=== PATIENT | male | born 1995 | race Caucasian/White ===

== ENCOUNTER 2018-04-01 17:45 | Inpatient (IN) | payer OTHER ==
[2018-04-01 19:32] VITALS: BMI 25.0
[2018-04-01] MEDS ORDERED: MELATONIN 5 MG TABLETS PO PRN (22:00)
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
[2018-04-01] MEDS ORDERED: guaiFENesin/D-METHORPHAN HB 10 ML UNIT-DOSE CUPS PO PRN (23:03)
[2018-04-01] MEDS ORDERED: diazePAM 5 MG TABLET PO PRN (23:03)
[2018-04-01] MEDS ORDERED: P-EPHED 60MG/TRIPROLIDI 2.5MG TABLET PO PRN (23:03)
[2018-04-01] MEDS ORDERED: diazePAM 5 MG TABLET PO ONE (23:03)
[2018-04-01] MEDS ORDERED: MENTHOL/PHENOL 1 EACH UD MM PRN (23:03)
[2018-04-01] MEDS ORDERED: ACETAMINOPHEN 325 MG TABLET (FP) PO PRN (23:03)
[2018-04-01] MEDS ORDERED: IBUPROFEN 400 MG TABLET (FP) PO PRN (23:03)
[2018-04-01] MEDS ORDERED: MAGNESIUM CITRATE 300 ML BOTTLE PO PRN (23:03)
[2018-04-01] MEDS ORDERED: MAGNESIUM HYDROX 2400MG/30ML ORAL SUSPENSION 30 ML CUP PO PRN (23:03)
[2018-04-01] MEDS ORDERED: MAG HYDROX/AL HYDROX/SIMETH 30 ML UNIT-DOSE CUP PO PRN (23:03)
[2018-04-01] MEDS ORDERED: NICOTINE POLACRILEX 2 MG GUM BC PRN (23:03)
[2018-04-01] MEDS ORDERED: LOPERAMIDE HCL 2 MG CAPSULE PO PRN (23:03)
[2018-04-02] MEDS: diazePAM 5 MG TABLET PO SCH ×2 (00:26→05:15)
[2018-04-02 07:31] LABS: URINE APPEARANCE SLCLOUDY; URINE BILIRUBIN NEGATIVE (<2.0 mg/dL); URINE COLOR DKYELLOW; URINE GLUCOSE (UA) NEGATIVE (NEGATIVE); URINE KETONE TRACE (NEGATIVE); URINE LEUK ESTERASE TRACE (NEGATIVE); URINE NITRITE NEGATIVE (NEGATIVE); URINE PROTEIN NEGATIVE (NEGATIVE)
[2018-04-02 07:54] LABS: EPI CELLS RARE /HPF (FEW); GRANULAR CASTS 8 /lpf; URINE BACTERIA RARE /hpf (NONE SEEN); URINE MUCUS MODERATE
[2018-04-02] MEDS: PRENATAL VITAMINS W/ FOLIC ACID TABLET (FP) PO SCH (10:11)
[2018-04-02] MEDS: NICOTINE 14 MG/24 HOURS TOPICAL PATCH TD SCH (10:11)
[2018-04-02] MEDS ORDERED: hydrOXYzine PAMOATE 50 MG CAPSULE (FP) PO PRN (10:22)
[2018-04-02 10:26] LABS: HEMATOCRIT 43.6 % (35.4-49); HEMOGLOBIN 15.1 GM/dL (11.7-16.9); MCH 33.1 pg (25.7-33.7); MCHC 34.6 g/dl (32.0-35.9); MEAN CELL VOLUME 95.5 fl (80-96); MEAN PLT VOLUME 9.4 fl (7.5-11.1); PLATELET COUNT 231 K/MM3 (134-434); RBC 4.57 M/mm3 (4.00-5.60); RDW 13.1 % (11.9-15.9); WHITE BLOOD COUNT 6.5 K/mm3 (4.0-10.0)
--- NOTE | 2018-04-02 10:36 | PN ---
[facility] Progress Note Note: PT REPORTS HE WAS DISCHARGED FROM [facility] ON 03/31/18 AND APPARENTLY USED PERCOCETS AND XANAX RIGHT AFTER HE GOT OUT OF [facility]. 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 PT STATES 'I'M NOT WITHDRAWING. I DID NOT USE MUCH". PT IS WILLING TO GO TO REHAB TODAY. PT IS ALERT O X 3. OOB AMBULATING WITH STEADY GAIT.NAD. Vital Signs 04/02/18 04/02/18 04/02/18 03:30 04:15 05:48 Temperature 97.4 F L Pulse Rate 55 L Respiratory 20 18 18 Rate Blood Pressure 98/62 04/02/18 09:09 Temperature 96.9 F L Pulse Rate 84 Respiratory 20 Rate Blood Pressure 110/75 Laboratory Tests 04/01/18 04/02/18 19:00 07:30 WBC 6.5 RBC 4.57 Hgb 15.1 Hct 43.6 MCV 95.5 MCH 33.1 MCHC 34.6 RDW 13.1 Plt Count 231 MPV 9.4 Urine Color Dkyellow Urine Appearance Slcloudy Urine pH 5.0 Ur Specific [place] 1.026 Urine Protein Negative Urine Glucose (UA) Negative Urine Ketones Trace H Urine Blood Negative Urine Nitrite Negative Urine Bilirubin Negative Urine Urobilinogen 2.0 Ur Leukocyte Esterase Trace Urine WBC (Auto) 10 Urine RBC (Auto) 1 Ur Epithelial Cells Rare Urine Bacteria Rare Granular Casts 8 Urine Mucus Moderate PLAN/RECOMMENDATION: D/C DETOX PROTOCOL PT TO GO INTO REHAB CASE DISCUSSED WITH COUNSELOR ASHLIE CROWDER
[2018-04-02 11:59] LABS: CHLORIDE 102 mmol/L (98-107); POTASSIUM 3.6 mmol/L (3.5-5.1); SODIUM 139 mmol/L (136-145)
[2018-04-02 12:24] LABS: ALBUMIN 3.8 g/dl (3.4-5.0); ALK PHOS 34 U/L (45-117); ANION GAP 9 (8-16); BILIRUBIN,TOTAL 1.7 mg/dL (0.2-1.0); BLOOD UREA NITROGEN 16 mg/dL (7-18); CALCIUM 9.1 mg/dL (8.5-10.1); CO2 28 mmol/L (21-32); CREATININE 1.2 mg/dL (0.7-1.3); GLUCOSE,RANDOM 87 mg/dL (74-106); SGOT/AST 15 U/L (15-37); SGPT/ALT 22 U/L (12-78); TOT PROT 6.5 g/dl (6.4-8.2)
--- NOTE | 2018-04-02 16:48 | CONSULT ---
[facility] Psychiatric Consult - Data Date of interview: 04/02/18 Admission source: [facility] Identifying data: First admission to [facility] for this 23 y/o male seeking detox treatment on for cannabis,xanax and opiate dependence.Patient is single,a father of three,domiciled and unemployed.Mr Beltrán declares that he just got released from nursing home (3 days ago) after serving a seven year sentence.Patient admits to using percocet + xanax immediately after his exit from incarceration. Substance Abuse History: Confirmed by patient in this interview.Smoking history : Current every day smoker. Have you smoked in the past 12 months: Yes. Aproximately how many cigarettes per day: 20. Hx Chewing Tobacco Use: Yes. Initiated information on smoking cessation: No. 'Breaking Loose' booklet given : 04/01/18. - Substance & Tx. History. Hx Alcohol Use: No. Hx Substance Use: Yes. Substance Use Type: Cocaine, Marijuana. - Substances Abused. Alprazolam (Xanax). Route: Oral. Frequency: Daily. Amount used: 5-6 2MG. Age of first use: 21. Date of Last Use: 03/31/18. PERCOCET. Route: Oral. Frequency: Daily. Amount used: 10 /10MG. Age of first use: 11. Date of Last Use: 03/31/18 Medical History: Patient endorses good general health. Psychiatric History: Patient denies. Physical/Sexual Abuse/Trauma History: Heavy stressor : released three days ago after seven years in nursing home. Additional Comment: Urine Drug Screen Results: THC-Marijuana, BZO- Benzodiazepines, MTD-Methadone.Noted. Mental Status Exam - Mental Status Exam Alert and Oriented to: Time, Place, Person Cognitive Function: Good Patient Appearance: Well Groomed (covered with tattoos : neck,face,chest,arms + forearms ; appears much older than his stated age) Mood: Withdrawn, Anxious Affect: Mood Congruent Patient Behavior: Fatigued, Appropriate, Cooperative Speech Pattern: Clear Voice Loudness: Normal Thought Process: Goal Oriented Thought Disorder: Not Present Hallucinations: Denies Suicidal Ideation: Denies Insight/Judgement: Poor Sleep: Well Appetite: Good Muscle strength/Tone: Normal Gait/Station: Normal Psychiatric Findings - Problem List ([place] 1, 2,3) (1) Opioid dependence with withdrawal Status: Acute (2) Sedative, hypnotic or anxiolytic dependence with withdrawal, uncomplicated Status: Acute (3) Marihuana abuse Status: Acute (4) Nicotine dependence Status: Acute Qualifiers: Nicotine product type: cigarettes Substance use status: in withdrawal Qualified Code(s): F17.213 - Nicotine dependence, cigarettes, with withdrawal - Initial Treatment Plan Initial Treatment Plan: Psychoeducation.Detoxification in progress.Observation.
[2018-04-02] MEDS ORDERED: THIAMINE HCL 100 MG TABLET (FP) PO SCH (22:00)
[2018-04-03 09:20] VITALS: BP 127/77; PULSE 80; TEMP 96.9
[2018-04-03] MEDS ORDERED: diazePAM 5 MG TABLET PO SCH (10:00)
[2018-04-03] MEDS: NICOTINE 14 MG/24 HOURS TOPICAL PATCH TD SCH (10:03)
[2018-04-03] MEDS: PRENATAL VITAMINS W/ FOLIC ACID TABLET (FP) PO SCH (10:03)
--- NOTE | 2018-04-03 12:33 | PN ---
[facility] Progress Note (SOAP) Subjective: BED AVAILABLE TODAY ON FOR PT TO CONTINUE WITH AFTERCARE. ALERT O X 3. NAD. Objective: 04/03/18 12:33 Vital Signs 04/03/18 04/03/18 06:37 09:19 Temperature 96.1 F L 96.9 F L Pulse Rate 61 80 Respiratory 18 20 Rate Blood Pressure 116/69 127/77 Laboratory Tests 04/01/18 04/02/18 04/02/18 19:00 07:30 07:30 WBC 6.5 RBC 4.57 Hgb 15.1 Hct 43.6 MCV 95.5 MCH 33.1 MCHC 34.6 RDW 13.1 Plt Count 231 MPV 9.4 Sodium 139 Potassium 3.6 Chloride 102 Carbon Dioxide 28 Anion Gap 9 BUN 16 Creatinine 1.2 Creat Clearance w eGFR > 60 Random Glucose 87 Calcium 9.1 Total Bilirubin 1.7 H AST 15 ALT 22 Alkaline Phosphatase 34 L Total Protein 6.5 Albumin 3.8 Urine Color Dkyellow Urine Appearance Slcloudy Urine pH 5.0 Ur Specific [place] 1.026 Urine Protein Negative Urine Glucose (UA) Negative Urine Ketones Trace H Urine Blood Negative Urine Nitrite Negative Urine Bilirubin Negative Urine Urobilinogen 2.0 Ur Leukocyte Esterase Trace Urine WBC (Auto) 10 Urine RBC (Auto) 1 Ur Epithelial Cells Rare Urine Bacteria Rare Granular Casts 8 Urine Mucus Moderate RPR Titer 04/02/18 07:30 WBC RBC Hgb Hct MCV MCH MCHC RDW Plt Count MPV Sodium Potassium Chloride Carbon Dioxide Anion Gap BUN Creatinine Creat Clearance w eGFR Random Glucose Calcium Total Bilirubin AST ALT Alkaline Phosphatase Total Protein Albumin Urine Color Urine Appearance Urine pH Ur Specific [place] Urine Protein Urine Glucose (UA) Urine Ketones Urine Blood Urine Nitrite Urine Bilirubin Urine Urobilinogen Ur Leukocyte Esterase Urine WBC (Auto) Urine RBC (Auto) Ur Epithelial Cells Urine Bacteria Granular Casts Urine Mucus RPR Titer Nonreactive Assessment: 04/03/18 12:33 MEDICALLY STABLE Plan: D/C TO [facility] TODAY
--- NOTE | 2018-04-03 12:36 | DS ---
[facility] Detox Discharge Summary Admission Date: 04/01/18 Discharge Date: 04/03/18 - History Present History: Cannabis Dependence, Opioid Dependence, Sedative Dependence Additional Comments: PT DISCHARGED TO REHAB TODAY FOR [facility] LEVEL OF CARE WHERE BED IS AVAILABLE FOR REHAB. Pertinent Past History: PLEASE SEE DX BELOW - Physical Exam Results Vital Signs: Vital Signs Temperature 96.9 F L 04/03/18 09:19 Pulse Rate 80 04/03/18 09:19 Respiratory Rate 20 04/03/18 09:19 Blood Pressure 127/77 04/03/18 09:19 O2 Sat by Pulse Oximetry (%) Pertinent Admission Physical Exam Findings: Laboratory Tests 04/01/18 04/02/18 04/02/18 19:00 07:30 07:30 WBC 6.5 RBC 4.57 Hgb 15.1 Hct 43.6 MCV 95.5 MCH 33.1 MCHC 34.6 RDW 13.1 Plt Count 231 MPV 9.4 Sodium 139 Potassium 3.6 Chloride 102 Carbon Dioxide 28 Anion Gap 9 BUN 16 Creatinine 1.2 Creat Clearance w eGFR > 60 Random Glucose 87 Calcium 9.1 Total Bilirubin 1.7 H AST 15 ALT 22 Alkaline Phosphatase 34 L Total Protein 6.5 Albumin 3.8 Urine Color Dkyellow Urine Appearance Slcloudy Urine pH 5.0 Ur Specific [place] 1.026 Urine Protein Negative Urine Glucose (UA) Negative Urine Ketones Trace H Urine Blood Negative Urine Nitrite Negative Urine Bilirubin Negative Urine Urobilinogen 2.0 Ur Leukocyte Esterase Trace Urine WBC (Auto) 10 Urine RBC (Auto) 1 Ur Epithelial Cells Rare Urine Bacteria Rare Granular Casts 8 Urine Mucus Moderate RPR Titer 04/02/18 07:30 WBC RBC Hgb Hct MCV MCH MCHC RDW Plt Count MPV Sodium Potassium Chloride Carbon Dioxide Anion Gap BUN Creatinine Creat Clearance w eGFR Random Glucose Calcium Total Bilirubin AST ALT Alkaline Phosphatase Total Protein Albumin Urine Color Urine Appearance Urine pH Ur Specific [place] Urine Protein Urine Glucose (UA) Urine Ketones Urine Blood Urine Nitrite Urine Bilirubin Urine Urobilinogen Ur Leukocyte Esterase Urine WBC (Auto) Urine RBC (Auto) Ur Epithelial Cells Urine Bacteria Granular Casts Urine Mucus RPR Titer Nonreactive - Treatment Hospital Course: Detox Protocol Followed, Detoxed Safely, Responded well, Discharged Condition Good, Rehab Referral Accepted Patient has Accepted a Rehab Referral to: [facility] - Medication Discharge Medications: Ambulatory Orders NK [No Known Home Medication] 04/01/18 - Diagnosis (1) Marihuana abuse Status: Acute (2) Opioid abuse Status: Acute (3) Sedative abuse Status: Acute (4) Nicotine dependence Status: Acute Qualifiers: Nicotine product type: cigarettes Substance use status: in withdrawal Qualified Code(s): F17.213 - Nicotine dependence, cigarettes, with withdrawal - AMA Did Patient Leave Against Medical Advice: No
[2018-04-05] MEDS ORDERED: diazePAM 5 MG TABLET PO SCH (10:00)
== END 2018-04-03 12:36 | disposition other institution (70) | DRG 773 ==
LOC: YASAS 17:45 → Y3N 22:30
PROVIDERS: ADMIT Surgery; ATTEND Surgery
PROC: HZ2ZZZZ Detoxification Services for Substance Abuse Treatment (ICD-10-PCS; principal; 2018-04-01)
DX: F11.23 Opioid dependence with withdrawal (principal); F13.230 Sedative, hypnotic or anxiolytic dependence with withdrawal, uncomplicated; F12.10 Cannabis abuse, uncomplicated; F17.213 Nicotine dependence, cigarettes, with withdrawal; F41.9 Anxiety disorder, unspecified; F32.9 Major depressive disorder, single episode, unspecified; R00.0 Tachycardia, unspecified; Z91.5 Personal history of self-harm
CPT/HCPCS: 36415; 80053; 81003; 81015; 85027; 86593

== ENCOUNTER 2024-05-12 14:55 | Inpatient (IN) | payer OTHER ==
[2024-05-12 15:52] VITALS: BMI 24.5
[2024-05-12] MEDS ORDERED: guaiFENesin 600 MG TABLET.ER (FP) PO PRN (15:56)
[2024-05-12] MEDS ORDERED: MAGNESIUM HYDROX 2400MG/30ML ORAL SUSPENSION 30 ML CUP PO PRN (15:56)
[2024-05-12] MEDS ORDERED: POLYETHYLENE GLYCOL (HEALTHYLAX) 3350 17 GM PACKET PO PRN (15:56)
[2024-05-12] MEDS ORDERED: LOPERAMIDE HCL 2 MG CAPSULE PO PRN (15:56)
[2024-05-12] MEDS ORDERED: DICYCLOMINE HCL 10 MG CAPSULE PO PRN (15:56)
[2024-05-12] MEDS ORDERED: BENZOCAINE/MENTHOL (CHLORASEPTIC ) LOZENGE MM PRN (15:56)
[2024-05-12] MEDS ORDERED: IBUPROFEN 400 MG TABLET (FP) PO PRN (15:56)
[2024-05-12] MEDS ORDERED: BISMUTH SUBSALICYLATE 524 MG/30 ML PO PRN (15:56)
[2024-05-12] MEDS ORDERED: NALOXONE (NARCAN) HCL 4 MG/0.1 ML SPRAY NS PRN (15:56)
[2024-05-12] MEDS ORDERED: MAG HYDROX/AL HYDROX/SIMETH 30 ML UNIT-DOSE CUP PO PRN (15:56)
[2024-05-12] MEDS ORDERED: BENZONATATE 200 MG CAPSULE PO PRN (15:56)
[2024-05-12] MEDS ORDERED: NALOXONE HCL 0.4 MG/ML VIAL IM PRN (15:56)
[2024-05-12] MEDS ORDERED: methaDONE HCL 10 MG TABLET PO PRN (17:56)
[2024-05-12] MEDS ORDERED: methaDONE HCL 10 MG TABLET (FOR DETOX USE ONLY) ONE (19:52)
[2024-05-12] MEDS ORDERED: cloNIDine HCL 0.1 MG TABLET ONE (19:52)
[2024-05-12] MEDS: methaDONE HCL 10 MG TABLET PO ONE (20:34)
[2024-05-12] MEDS: PRENATAL VITAMINS W/ FOLIC ACID TABLET (FP) PO SCH (20:34)
[2024-05-12] MEDS: cloNIDine HCL 0.1 MG TABLET PO SCH (20:34)
[2024-05-12] MEDS: THIAMINE 100 MG TABLET PO SCH (21:37)
[2024-05-12] MEDS: MELATONIN 5 MG TABLETS PO SCH (21:37)
[2024-05-13] MEDS: levETIRAcetam 500 MG TABLET (FP) PO SCH (09:23)
[2024-05-13] MEDS: NICOTINE 14 MG/24 HOURS TOPICAL PATCH TD SCH (09:26)
[2024-05-13] MEDS ORDERED: methaDONE 40 MG, methaDONE 10 MG PO ONE (10:00)
[2024-05-13 12:03] LABS: HEMATOCRIT 47.4 % (35.4-49); HEMOGLOBIN 15.9 GM/dL (11.7-16.9); MCH 32.2 pg (25.7-33.7); MCHC 33.6 g/dl (32.0-35.9); MEAN CELL VOLUME 95.9 fl (80-96); PLATELET COUNT 249 10^3/uL (134-434); RBC 4.94 M/mm3 (4.00-5.60); RDW 13.4 % (11.9-15.9); WHITE BLOOD COUNT 9.8 K/mm3 (4.0-10.0)
[2024-05-13 12:25] LABS: POTASSIUM 4.4 mmol/L (3.5-5.1)
[2024-05-13 12:38] LABS: BLOOD UREA NITROGEN 9.5 mg/dL (7-18); CALCIUM 9.7 mg/dL (8.5-10.1)
[2024-05-13 12:43] LABS: TOT PROT 7.2 g/dl (6.4-8.2)
[2024-05-13] MEDS: ACETAMINOPHEN 325 MG TABLET (FP) PO PRN (20:26)
[2024-05-13] MEDS: METHOCARBAMOL 500 MG TABLET PO PRN (20:28)
[2024-05-13] MEDS: MELATONIN 5 MG TABLETS PO SCH (22:26)
[2024-05-13] MEDS: hydrOXYzine PAMOATE 25 MG CAPSULE (FP) PO PRN (23:57)
[2024-05-14] MEDS: cloNIDine HCL 0.1 MG TABLET PO PRN (01:06)
[2024-05-14] MEDS: methaDONE HCL 10 MG TABLET (FOR DETOX USE ONLY) PO ONE (05:34)
[2024-05-14] MEDS: methaDONE HCL 10 MG TABLET PO ONE (09:54)
[2024-05-14] MEDS ORDERED: methaDONE 40 MG, methaDONE 20 MG PO ONE (10:00)
[2024-05-14] MEDS ORDERED: methaDONE HCL 10 MG TABLET PO PRN (11:10)
[2024-05-15] MEDS: methaDONE HCL 40 MG DISPERSABLE TABLET PO ONE (09:43)
[2024-05-15] MEDS ORDERED: methaDONE 40 MG, methaDONE 30 MG PO ONE (10:00)
[2024-05-16] MEDS: ONDANSETRON *ODT* 4 MG TABLET SL PRN (00:44)
[2024-05-16] MEDS: IBUPROFEN 600 MG TABLET (FP) PO PRN (04:24)
[2024-05-16] MEDS ORDERED: methaDONE HCL 10 MG TABLET (FOR DETOX USE ONLY) PO ONE (06:00)
[2024-05-16 09:22] VITALS: BP 128/94; PULSE 92; RESP 16; TEMP 97.1
[2024-05-16] MEDS: methaDONE 40 MG, methaDONE 10 MG PO ONE (09:44)
[2024-05-16] MEDS ORDERED: methaDONE HCL 40 MG DISPERSABLE TABLET PO ONE ×2 (10:00)
[2024-05-17] MEDS ORDERED: methaDONE 80 MG, methaDONE 10 MG PO ONE (10:00)
[2024-05-17] MEDS ORDERED: methaDONE HCL 40 MG DISPERSABLE TABLET PO ONE (10:00)
[2024-05-17] MEDS ORDERED: methaDONE 40 MG, methaDONE 20 MG PO ONE (10:00)
== END 2024-05-16 10:00 | disposition home or self-care (01) | DRG 773 ==
LOC: SUATTDRO 14:55 → YASAS 14:55 → Y6N 20:25
PROVIDERS: ADMIT Allergy & Immunology; ATTEND Family Medicine
PROC: HZ2ZZZZ Detoxification Services for Substance Abuse Treatment (ICD-10-PCS; principal; 2024-05-12)
DX: F11.23 Opioid dependence with withdrawal (principal); F13.20 Sedative, hypnotic or anxiolytic dependence, uncomplicated; F12.20 Cannabis dependence, uncomplicated; F17.213 Nicotine dependence, cigarettes, with withdrawal; F19.282 Other psychoactive substance dependence with psychoactive substance-induced sleep disorder; F19.24 Other psychoactive substance dependence with psychoactive substance-induced mood disorder; F41.9 Anxiety disorder, unspecified; F32.A Depression, unspecified
CPT/HCPCS: 36415; 80053; 80305; 80307; 85027; 86780; 93005; 93010; Q0162